=== PATIENT | male | born 1960 | race Caucasian/White ===

== ENCOUNTER → 2020-02-09 | Outpatient (CLI) | payer OTHER ==
[~2020-02-09] MED LIST: 0.9 % SODIUM CHLORIDE 10 ML VIAL. ONE; BUPIVACAINE MPF 0.25% 10 ML VIAL. ONE; BUPR300T3 PO; CETI10TA74 PO; CYCL-331 PO; DEXAMETHASONE SOD PHOS 10 MG/ML VIAL. ONE; IOHEXOL 300 MG/ML 50 ML VIAL. ONE; LIDOCAINE 1% PF 30 ML VIAL. ONE; LISI-334 PO; NAPR500T8 PO; OMEP20TA63 PO; SIMV10TA PO
[2020-02-09 14:09] VITALS: BP 125/73
== END | disposition home or self-care (01) ==
LOC: SURG 13:50
PROVIDERS: ATTEND Anesthesiology
DX: M51.16 Intervertebral disc disorders with radiculopathy, lumbar region (principal); M54.5 Low back pain; M47.816 Spondylosis without myelopathy or radiculopathy, lumbar region; M79.10 Myalgia, unspecified site; Z98.890 Other specified postprocedural states; Z88.0 Allergy status to penicillin
CPT/HCPCS: 64483; 64484; J1100; J2001; J3490; Q9967

== ENCOUNTER → 2020-03-01 | Outpatient (CLI) | payer OTHER ==
[~2020-03-01] MED LIST changes: -0.9 % SODIUM CHLORIDE 10 ML VIAL. ONE; -BUPIVACAINE MPF 0.25% 10 ML VIAL. ONE; -DEXAMETHASONE SOD PHOS 10 MG/ML VIAL. ONE; -IOHEXOL 300 MG/ML 50 ML VIAL. ONE; -LIDOCAINE 1% PF 30 ML VIAL. ONE
[2020-03-01 15:18] VITALS: BP 145/76
== END ==
LOC: SURG 15:09
PROVIDERS: ATTEND Anesthesiology
DX: Z01.818 Encounter for other preprocedural examination (principal); M47.26 Other spondylosis with radiculopathy, lumbar region; M51.26 Other intervertebral disc displacement, lumbar region; M79.10 Myalgia, unspecified site; M79.641 Pain in right hand; M79.642 Pain in left hand
CPT/HCPCS: 99214; G0463

== ENCOUNTER → 2020-03-15 | Outpatient (CLI) | payer OTHER ==
[~2020-03-15] MED LIST changes: +0.9 % SODIUM CHLORIDE 10 ML VIAL. ONE; +BUPIVACAINE MPF 0.25% 10 ML VIAL. ONE; +DEXAMETHASONE SOD PHOS 10 MG/ML VIAL. ONE; +GABA-586 PO; +IOHEXOL 300 MG/ML 50 ML VIAL. ONE; +LIDOCAINE 1% PF 30 ML VIAL. ONE
[2020-03-15 13:29] VITALS: BP 131/81
== END | disposition home or self-care (01) ==
LOC: SURG 12:32
PROVIDERS: ATTEND Anesthesiology
DX: M47.26 Other spondylosis with radiculopathy, lumbar region (principal); G47.30 Sleep apnea, unspecified; I10 Essential (primary) hypertension; M19.90 Unspecified osteoarthritis, unspecified site; M51.26 Other intervertebral disc displacement, lumbar region; M79.10 Myalgia, unspecified site; Z88.0 Allergy status to penicillin; Z85.89 Personal history of malignant neoplasm of other organs and systems; Z98.890 Other specified postprocedural states; Z79.899 Other long term (current) drug therapy
CPT/HCPCS: 64483; 64484; J1100; J2001; J3490; Q9967; 62323

== ENCOUNTER → 2020-06-21 | Day surgery (SDC) | payer OTHER ==
[~2020-06-21] MED LIST changes: -LISI-334 PO; +LISI20TA18 PO
[2020-06-21 10:08] VITALS: BP 134/82
== END | disposition home or self-care (01) ==
LOC: SURG 08:59
PROVIDERS: ATTEND Anesthesiology
DX: M47.26 Other spondylosis with radiculopathy, lumbar region (principal); M51.26 Other intervertebral disc displacement, lumbar region; M79.10 Myalgia, unspecified site; G47.30 Sleep apnea, unspecified; M19.90 Unspecified osteoarthritis, unspecified site; I10 Essential (primary) hypertension; Z98.890 Other specified postprocedural states; Z88.0 Allergy status to penicillin; Z85.89 Personal history of malignant neoplasm of other organs and systems; Z79.899 Other long term (current) drug therapy
CPT/HCPCS: 64483; 64484; J1100; J3490; Q9967

== ENCOUNTER → 2020-07-12 | Day surgery (SDC) | payer OTHER ==
[2020-07-12 11:05] VITALS: BP 121/76
== END | disposition home or self-care (01) ==
LOC: SURG 10:13
PROVIDERS: ATTEND Anesthesiology
DX: M54.16 Radiculopathy, lumbar region (principal); M47.816 Spondylosis without myelopathy or radiculopathy, lumbar region; M51.26 Other intervertebral disc displacement, lumbar region; M79.10 Myalgia, unspecified site; G47.30 Sleep apnea, unspecified; I10 Essential (primary) hypertension; Z98.890 Other specified postprocedural states; Z88.0 Allergy status to penicillin; Z79.899 Other long term (current) drug therapy; Z85.89 Personal history of malignant neoplasm of other organs and systems
CPT/HCPCS: 64483; 64484; J1100; J3490; Q9967

== ENCOUNTER → 2020-08-16 | Day surgery (SDC) | payer OTHER ==
[~2020-08-16] MED LIST changes: -0.9 % SODIUM CHLORIDE 10 ML VIAL. ONE; -BUPIVACAINE MPF 0.25% 10 ML VIAL. ONE; -DEXAMETHASONE SOD PHOS 10 MG/ML VIAL. ONE; -IOHEXOL 300 MG/ML 50 ML VIAL. ONE; -LIDOCAINE 1% PF 30 ML VIAL. ONE
[2020-08-16 08:49] VITALS: BP 124/82
== END | disposition home or self-care (01) ==
LOC: SURG 08:39
PROVIDERS: ATTEND Anesthesiology
DX: M54.5 Low back pain (principal); M47.816 Spondylosis without myelopathy or radiculopathy, lumbar region; M51.26 Other intervertebral disc displacement, lumbar region; M79.10 Myalgia, unspecified site; M19.90 Unspecified osteoarthritis, unspecified site; I10 Essential (primary) hypertension; G47.30 Sleep apnea, unspecified; Z88.0 Allergy status to penicillin; Z79.899 Other long term (current) drug therapy
CPT/HCPCS: 99213; G0463